=== PATIENT | male | born 1950 | race Caucasian/White ===

== ENCOUNTER → 2017-05-27 | Outpatient (CLI) | payer MEDICARE, BC ==
--- NOTE | 2017-05-28 07:36 | PN ---
This patient is coming in for a yearly follow up regarding obstructive sleep apnea. He is a 67 -year-old male patient diagnosed having obstructive sleep apnea, currently on CPAP therapy at a pressure of 13 cm water. Very compliant. Gained only four pounds since his last evaluation. CPAP use for more than four hours is 100%. Average CPAP use is 8.4 hours. Leak factor is 7 L. Using Simplex full face mask. AHI during treatment is less than 5. Benefitting from treatment. No complaints. Blood pressure 131/78. Pulse 66, respiratory rate 16, temperature 97.8, saturation 96% on room air. Weight is 235. Height is 6 feet 1 inches. General appearance: Calm comfortable. Lungs diminished, otherwise clear. Heart sounds regular rate and rhythm. Normal S1, S2. No murmurs. Abdomen soft, nontender, no organomegaly. Extremities: no edema, no cyanosis, no clubbing. IMPRESSION: Obstructive sleep apnea, continues to be on successful treatment with CPAP at a pressure of 13. PLAN: 1. Refill the supplies including mask, tubings. 2. Treatment is successful, no need for adjustments. 3. See me back as needed. YAS
== END ==
LOC: SLEEP 14:57
PROVIDERS: ATTEND Internal Medicine Critical Care Medicine
DX: G47.33 Obstructive sleep apnea (adult) (pediatric) (principal)

== ENCOUNTER → 2017-11-20 | Outpatient (CLI) | payer MEDICARE, BC ==
--- NOTE | 2017-11-20 12:31 | FL ---
Modified barium swallow. HISTORY: Dysphagia. Modified barium swallow was performed with the department of speech pathology. The patient was prese nted with various consistencies of barium. There is no evidence for aspiration or penetration. Mild vallecular residuals noted. Fixation plate and screws cervical spine secondary to ACDF. Full report is to follow from the department of speech p athology. Impression: No evidence for aspiration or penetration.
== END | disposition home or self-care (01) ==
LOC: RADFLMAIN 10:57
PROVIDERS: ATTEND Family Medicine
DX: R13.10 Dysphagia, unspecified (principal)
CPT/HCPCS: 74230

== ENCOUNTER → 2018-01-14 | Outpatient (CLI) | payer MEDICARE, BC ==
[2018-01-14 11:26] LABS: Basophils % (A) 0 %; Eosinophils # (A) 0.1 k/uL (0-0.7); Eosinophils % (A) 2 %; HCT 46.4 % (39.0-53.0); HGB 15.7 gm/dL (13.0-17.5); Lymphocytes # (A) 1.2 k/uL (1.0-4.8); Lymphocytes % (A) 21 %; MCH 31.4 pg (25.0-35.0); MCHC 33.9 g/dL (31.0-37.0); MCV 92.7 fL (80.0-100.0); Mean Platelet Volume 6.7; Monocytes # (A) 0.3 k/uL (0-1.0); Monocytes % (A) 6 %; Neutrophils % (A) 70 %; Platelet Count 239 k/uL (150-450); RDW 12.5 % (11.5-15.5); WBC 5.7 k/uL (3.8-10.6)
[2018-01-14 11:42] LABS: Albumin 4.1 g/dL (3.5-5.0); Calcium 9.9 mg/dL (8.4-10.2); Total Bilirubin 0.4 mg/dL (0.2-1.3); Total Protein 6.7 g/dL (6.3-8.2)
[2018-01-14 12:12] LABS: Prostate Specific Antigen 1.15 ng/mL (0.00-4.00)
== END | disposition home or self-care (01) ==
LOC: LABWHC1 10:49
PROVIDERS: ATTEND Family Medicine
DX: Z00.00 Encounter for general adult medical examination without abnormal findings (principal); I10 Essential (primary) hypertension; E78.4 Other hyperlipidemia; K21.9 Gastro-esophageal reflux disease without esophagitis
CPT/HCPCS: 36415; 80053; 80061; 84153; 84443; 85025

== ENCOUNTER → 2018-06-10 | Outpatient (CLI) | payer MEDICARE, BC ==
--- NOTE | 2018-06-10 14:55 | PN ---
PROGRESS NOTE This is a 68-year-old male patient coming in for an annual check regarding her obstructive sleep apnea. The patient is on CPAP at a pressure of 15 cm of water. The patient is doing well. He is compliance. He is wearing his CPAP overnight. Based on the compliance data on the CPAP his CPAP use for more than 4 hours is 100%. His AHI was 6 while on treatment. He is not having any significant leaks around the mask. Total leak is around 2 L/minute. His averaging more than 6 hours of CPAP use per night. Never the less, he is interested in a different masks. He is currently using a medium-sized Simplus full face mask. Despite the fact that there was no significant leak, the patient prefers to explore other options. I tried AirFit after 20 full face mask medium size which he liked and he is willing to undergo the change in his mask interface. His Vineland score currently is 4. No other medical problems or comorbidities that developed over the past 1 year. His weight is down by around 6 pounds. Hemodynamically stable. Adequate blood pressure control. No other significant events. REVIEW OF SYSTEMS: 12-point review of system was done. Positive findings are mentioned in history of present illness. No headaches. No altered mentation. No heartburn. No chest pain. No shortness of breath. No nausea, vomiting. No other complaints otherwise. PHYSICAL EXAMINATION: BP is 129/80, pulse 52, respirations 16, temperature 97.5, saturation 95% on room air. Height is 6 feet, weight is 229, BMI 31. GENERAL APPEARANCE: Calm, comfortable. HEENT: Atraumatic, normocephalic. Neck is short, supple. Crowding of posterior pharynx. There is no goiter or neck masses. LUNGS: Clear to auscultation. HEART: Sounds are regular. Normal S1, S2. No S3, S4. No murmurs. ABDOMEN: Soft, nontender. No organomegaly. EXTREMITIES: No edema. No cyanosis or clubbing. IMPRESSION: Symptomatic sleep apnea currently on CPAP pressure of 13 cm of water. PLAN: 1. We will switch this patient to an AirFit F20 full face mask. 2. Will increase the CPAP pressure of 14 cm of water. 3. Encourage further weight loss. 4. Optimize sleep hygiene measures. 5. Treatment is successful. The patient will see me back in a year's time or earlier if needed. MMODL / IJN: [id number] /
== END | disposition home or self-care (01) ==
LOC: SLEEP 13:20
PROVIDERS: ATTEND Internal Medicine Critical Care Medicine
DX: G47.33 Obstructive sleep apnea (adult) (pediatric) (principal); Z99.89 Dependence on other enabling machines and devices

== ENCOUNTER → 2019-04-20 | Outpatient (CLI) | payer MEDICARE | END | disposition home or self-care (01) | LOC: LABWHC1 10:38 | PROVIDERS: ATTEND Urology | DX: C61 Malignant neoplasm of prostate (principal) | CPT/HCPCS: 36415; 84153 ==

== ENCOUNTER → 2019-06-29 | Outpatient (CLI) | payer MEDICARE ==
--- NOTE | 2019-06-29 15:44 | P.PN ---
Subjective Progress Note Date: 06/29/19 Principal diagnosis: Obstructive sleep apnea Pleasant 69-year-old male patient who is coming in for an annual checkup regarding his RAMESH. This patient has been a long-time CPAP user. He has used his CPAP for many years. His last evaluation in my office was on 06/10/2018. At that time his CPAP pressure was increased up to 14 cm of water. On today's evaluation, the patient remains extremely compliant to CPAP use. He is still using his machine and based on the compliance data, the patient was noted to use his CPAP machine more than 4 hours 26 out of the past 30 days. He has been averaging around 9.1 hours of CPAP use per night. His EKG is around 4 L of per minute as the patient is using an airfit F20 fullface mask. His AHI is down to 4.3. Having said this, his treatment is successful. He reports that he has been threatening the straps on his headgear and is looking for alternative masks to make this problem looking easier. No chest pain. No palpitation. No shortness of breath. No headaches. No sleepwalking. No sleep talking. No parasomnia. No restlessness in the lower extremities. No new onset medical problems and comorbidities such as congestion heart failure, atrial fibrillation, stroke or heart attack. Review of systems a 12 point review of system was done and the positive findings are almost above history of present illness. No drowsiness pain no motor vehicle accident. No head trauma. No concussion. No meningitis. No heartburn. No nausea or vomiting. No chest pain or palpitations. No syncope. And rest of the review of systems essentially negative. His weight has been stable. Objective - Vital Signs Vital signs: His blood pressure is 138/71 with a pulse of 60 respirations 16 and a temperature of 98 0. His weight is 231 with a BMI of 3 on 11 4 with a height of 6 feet and 1 inch. His oxygen saturations 96%. The patient appeared well nourished and normally developed. Vital signs as documented. Head exam is unremarkable. No scleral icterus or corneal arcus noted. Neck is without jugular venous distension, thyromegaly, or carotid bruits. Carotid upstrokes are brisk bilaterally. Lungs are clear to auscultation and percussion. Cardiac exam reveals the PMI to be normally sized and situated. Rhythm is regular. First and second heart sounds normal. No murmurs, rubs or gallops. Abdominal exam reveals normal bowel sounds, no masses, no organomegaly and no aortic enlargement. Extremities are nonedematous and both femoral and pedal pulses are normal.Examination of the skin revealed no evidence of significant rashes, suspicious appearing nevi or other concerning lesions. Neurologically the patient is awake and alert and there is no focal neurological deficits. Assessment and Plan Plan: 1 obstructive sleep apnea currently on CPAP pressure of 14 cm of water with excellent clinical response and compliancy. 2 hypertension, well controlled 3 chronic depression currently on a combination of Wellbutrin and Zoloft. 4 history of acid reflux Plan Treatment remains quite successful with this patient. I'm going to lower the CPAP pressure down to 13 cm of water and appropriate adjustments on his CPAP unit was done. We did also an extensive search for an alternative mask. I was able to fit this patient to Airfit F30 medium size full facemask. The patient preferred this current fit knowing that this is an under the nose fullface mask and there was no significant leak around the mask. The patient was encouraged to lose weight. His treatment is successful. I'm hoping that the changes in the mask interface in lowering the pressure with further enhances compliance and clinical response. We'll continue to follow the patient will see her back in a years time, earlier if needed.
== END | disposition home or self-care (01) ==
LOC: SLEEP 14:28
PROVIDERS: ATTEND Internal Medicine Critical Care Medicine
DX: G47.33 Obstructive sleep apnea (adult) (pediatric) (principal); I10 Essential (primary) hypertension; F32.9 Major depressive disorder, single episode, unspecified; Z87.19 Personal history of other diseases of the digestive system; Z99.89 Dependence on other enabling machines and devices; Z79.899 Other long term (current) drug therapy

== ENCOUNTER → 2019-11-08 | Outpatient (CLI) | payer MEDICARE | END | disposition home or self-care (01) | LOC: LABWHC1 11:41 | PROVIDERS: ATTEND Urology | DX: C61 Malignant neoplasm of prostate (principal) | CPT/HCPCS: 36415; 84153 ==

== ENCOUNTER → 2020-05-22 | Outpatient (CLI) | payer MEDICARE | END | disposition home or self-care (01) | LOC: LABPAT 12:25 | PROVIDERS: ATTEND Orthopaedic Surgery | DX: Z01.812 Encounter for preprocedural laboratory examination (principal) | CPT/HCPCS: 87070 ==

== ENCOUNTER → 2020-05-22 | Outpatient (CLI) | payer MEDICARE | END | disposition home or self-care (01) | LOC: LABWHC1 12:27 | PROVIDERS: ATTEND Urology | DX: C61 Malignant neoplasm of prostate (principal) | CPT/HCPCS: 36415; 84153 ==

== ENCOUNTER 2020-06-19 12:55 | Day surgery (SDC) | payer MEDICARE ==
[2020-06-09 14:58] VITALS: BMI 29.5
--- NOTE | 2020-06-18 13:26 | HP ---
HISTORY AND PHYSICAL REASON FOR ADMISSION: Surgery 06/19/2020 HISTORY OF PRESENT ILLNESS: Mauricio Roth is a 70-year-old patient seen with progressive right knee symptomatic osteoarthritis. We discussed options. He elected to proceed right total knee arthroplasty. Consent regarding procedure was obtained. Clearance was provided by Dr. Obed Dahl. PAST MEDICAL HISTORY: Hypertension, gastroesophageal reflux disease, depression. PAST SURGICAL HISTORY: Cervical spine fusion, lumbar spine fusion, cholecystectomy. MEDICATIONS: Tenormin, lisinopril, sertraline, pantoprazole. ALLERGIES: None. SOCIAL HISTORY: He denies tobacco use. PHYSICAL EXAMINATION: Evaluation of the right knee range of motion is -2 to 115. Tenderness medial joint line. Crepitus medial patellofemoral compartments range of motion. Pain with patellofemoral compression. Ligaments stable. Hip rotation without pain. Distal neurovascular exam is intact. RADIOGRAPHS: Right knee radiographs revealed severe osteoarthritic changes. IMPRESSION: 1. Right knee osteoarthritis. 2. Hypertension. 3. Gastroesophageal reflux disease. PLAN: Right total knee arthroplasty. MMODL / IJN: [id number] /
[~2020-06-19 12:55] MED LIST: ACETAMINOPHEN TAB 500 MG TAB PO ONE; DEXAMETHASONE SOD PHOSPHATE 10 MG/ML 1 ML VIAL IV ONE; HYDROmorphone 0.5 MG/0.5 ML SYRINGE IVP PRN; LACTATED RINGERS 1,000 ML IV SCH; MELOXICAM 7.5 MG TAB PO ONE; MIDAZOLAM 2 MG/2 ML VIAL IV PRN; ONDANSETRON 4 MG/2 ML VIAL IVP ONE; ROPIVACAINE 246.25 MG, EPINEPHrine 0.5 MG, KETOROLAC 30 MG, cloNIDine HCL/PF 80 MCG, WA... MISCELLANE ONE; TRANEXAMIC ACID 1,000 MG in SODIUM CHLORIDE 0.9% 100 ML IVPB ONE
[2020-06-19] MEDS ORDERED: ACETAMINOPHEN TAB 500 MG TAB ONE (13:17)
[2020-06-19] MEDS ORDERED: ONDANSETRON 4 MG/2 ML VIAL ONE (13:17)
[2020-06-19] MEDS ORDERED: SCOPOLAMINE 1.5MG/72HR PATCH TRANSDERM ONE (13:41)
[2020-06-19] MEDS ORDERED: fentaNYL (PF) 50 MCG/ML 2 ML AMP IV ONE (13:44)
[2020-06-19] MEDS ORDERED: MIDAZOLAM 2 MG/2 ML VIAL IV ONE (13:44)
--- NOTE | 2020-06-19 14:21 | P.ANPRN ---
Procedure Note - Anesthesia - Nerve Block Performed Right Adductor Canal Infusion Time Out Performed: Yes ([id number]) Date of Procedure: 06/19/20 Procedure Start Time: 13:45 Procedure Stop Time: 13:52 Location of Patient: PreOp Indication: Acute Post-Operative Pain, Requested by Surgeon Specifically requested for management of pain by DrBasil: Leonid aDs Sedation Type: Sedate with meaningful contact maintained Preparation: Sterile Prep Position: Supine Catheter: Indwelling Needle Types: Pajunk Needle Gauge: 20 Ultrasound used to visualize needle placement: Yes Ultrasound used to observe medication spread: Yes Injectate: 0.5% Ropivacaine (see comment for volume) (20cc) Blood Aspirated: No Pain Paresthesia on Injection Noted: No Resistance on Injection: Normal Image Stored and Saved: Yes Events: Uneventful and Well Tolerated
[2020-06-19] MEDS ORDERED: SODIUM CHLORIDE 0.9% 100 ML BAG ONE (15:06)
[2020-06-19] MEDS ORDERED: MIDAZOLAM 2 MG/2 ML VIAL ONE (15:06)
[2020-06-19] MEDS ORDERED: fentaNYL (PF) 50 MCG/ML 2 ML AMP ONE (15:06)
[2020-06-19] MEDS ORDERED: PROPOFOL 10 MG/ML 20 ML VIAL IV ONE (15:06)
[2020-06-19] MEDS ORDERED: TRANEXAMIC ACID 1,000 MG/10 ML VIAL ONE (15:06)
[2020-06-19] MEDS ORDERED: ceFAZolin 1,000 MG in SODIUM CHLORIDE 0.9% 1,000 ML IRRIGATION ONE (15:51)
[2020-06-19] MEDS ORDERED: LACTATED RINGERS 1,000 ML IV ONE (16:12)
[2020-06-19] MEDS ORDERED: NALOXONE 0.4 MG/ML 1 ML VIAL IV PRN (17:14)
[2020-06-19] MEDS ORDERED: HYDROmorphone 0.5 MG/0.5 ML SYRINGE IVP PRN ×3 (17:14)
[2020-06-19] MEDS ORDERED: hydrOXYzine pamoate 25 MG CAP PO PRN (17:14)
[2020-06-19] MEDS ORDERED: HYDROcodone/APAP 5-325MG 1 EACH TAB PO PRN ×2 (17:14)
[2020-06-19] MEDS ORDERED: ONDANSETRON 4 MG/2 ML VIAL IVP PRN (17:14)
--- NOTE | 2020-06-19 17:14 | P.OP ---
Date of Procedure: 06/19/20 Preoperative Diagnosis: Right knee osteoarthritis Postoperative Diagnosis: Right knee osteoarthritis Procedure(s) Performed: Right total knee arthroplasty Implants: 1. Depuy attune size 7 right cruciate retaining cemented femur 2. Depuy attune size 7 fixed-bearing cemented tibial baseplate 3. Depuy attune size 7 fixed-bearing cruciate retaining 7 mm polyethylene tibial insert 4. Depuy attune 41 mm all polyethylene cemented patella Anesthesia: regional (Adductor canal catheter), local, spinal Surgeon: Leonid Das General Teller #1: Karan White Estimated Blood Loss (ml): 40 Pathology: other (Bone) Condition: stable Disposition: PACU Indications for Procedure: 70-year-old patient seen with symptomatic right knee osteoarthritis. After treatment options were discussed, he elected to proceed with total knee art hroplasty. Operative Findings: See description of procedure Description of Procedure: Patient was taken to the operative suite after having an adductor canal catheter placed by the department of anesthesia. Patient underwent a spinal anesthetic by the department of anesthesia. Patient was given preoperative IV intake antibiotics and TXA. A well-padded tourniquet was placed about the right lower extremity. The lower extremity was then prepped and draped in the normal sterile orthopedic fashion. The extremity was elevated, a tourniquet was insufflated to 300. A standard anterior incision was made sharply through skin. Dissection was taken down through the subcutaneous soft tissues down to the extensor mechanism. A medial arthrotomy was performed, patella was everted and knee was flexed. There was advanced osteoarthritis noted. I introduced my distal intramedullary femoral drill. I then introduced the distal femoral cutting jig. Darrius DEVI secured the cutting jig with 2 pins. I held retractors in position while Darrius DEVI performed the distal femoral resection through the guide area we now removed her distal femoral cutting guide. We now placed our 4-in-1 femoral cutting block and positioned and it was secured with 2 pins by Darrius DEVI while I held the block in position. The distal femoral finishing was now completed. A proximal tibial cutting guide was positioned. I held the guide in the appropriate position with both hands well Darrius DEVI inserted stabilizing pins into the guide. Proximal tibial cut was made. We now placed a trial femoral component into position, along with an appropriate size tibial tray and insert. We now took the knee through range of motion and had full extension good flexion and good overall soft tissue balance noted. The patella was everted and stabilized with 2 towel clips held by Darrius DEVI while I performed a flush with patellar quad tendon utilizing a fresh sawblade. We templated the patella, appropriate drill holes were made. An appropriate trial patella was positioned, knee was taken through full range of motion with the patella tracking very nicely. The trial patella was removed. Drill holes were made through the femoral component. All trial components were removed after marking off the appropriate rotation of the tibia. Retractors w ere now positioned along the proximal tibia. An appropriate keel punch was made with the appropriate size tibial guide by myself on Darrius DEVI assisted by holding retractors. At this point appropriate size implants were chosen and opened. The joint was irrigated copiously with pulse lavage mechanical irrigation. The posterior capsule was infiltrated with local analgesic. The wound was irrigated with pulse lavage mechanical irrigation. We mixed antibiotic methylmethacrylate. We placed the knee into flexion. We placed multiple retractors assisted by Darrius DEVI to expose the proximal tibia. Once the methyl methacrylate was ready, the tibial component was cemented into place removing any excess methylmethacrylate form by both myself and Darrius DEVI. The femoral component was cemented into place removing the removing any excess methylmethacrylate performed by both myself and Darrius DEVI. We then inserted the appropriate size polyethylene tibial insert. We made sure that it was locked into position. We took the knee into full extension, and then back in a flexion making sure we had removed any excess methylmethacrylate. The patellar component was then cemented down and secured with clamp. Excess methylmethacrylate removed. We kept the knee in full extension, patellar clamp in position until methylmethacrylate had hardened. Once it had hardened the patellar clamp was removed. The knee was taken through full range of motion. The patella tracked nicely. There was good soft tissue balancing. The tourniquet was now released. Additional hemostasis was achieved via electrocautery. A second gram of TXA was given. The wound again was irrigated with pulse lavage mechanical irrigation. The superficial soft tissues were infiltrated local analgesic. The extensor mechanism was repaired with Vicryl. We checked the repair with range of motion and it was stable. The subcutaneous soft tissues were repaired with Vicryl in layers. The skin was approximated with pernio/Dermabond. Sterile dressings were applied followed by loose web roll and Leobardo bandage. The patient was transferred to a bed, and taken to recovery in stable and satisfactory condition. Darrius DEVI assisted with this complex procedure.
[2020-06-19] MEDS ORDERED: ROPIVACAINE 0.2%-NS ON-Q PUMP 1,090 MG, EMPTY PAIN BALL 1 EACH MISCELLANE PRN (17:33)
--- NOTE | 2020-06-19 18:39 | XR ---
EXAMINATION TYPE: XR knee limited RT DATE OF EXAM: 06/19/2020 COMPARISON: NONE HISTORY: Knee surgery TECHNIQUE: 2 views FINDINGS: There is right knee prosthesis. Components are in anatomic position. IMPRESSION: No complicating process seen.
[2020-06-19] MEDS ORDERED: SENNOSIDES-DOCUSATE SODIUM 1 EACH TAB PO SCH (21:00)
[2020-06-19] MEDS: LACTATED RINGERS 1,000 ML IV SCH (23:15)
[2020-06-20] MEDS: LACTATED RINGERS 1,000 ML IV SCH ×2 (04:48→12:18)
[2020-06-20 07:36] VITALS: RESP 17
[2020-06-20 08:15] LABS: Basophils % (A) 0 %; Eosinophils # (A) 0.1 k/uL (0-0.7); Eosinophils % (A) 0 %; HCT 43.2 % (39.0-53.0); HGB 13.6 gm/dL (13.0-17.5); Lymphocytes # (A) 1.1 k/uL (1.0-4.8); Lymphocytes % (A) 8 %; MCH 30.5 pg (25.0-35.0); MCHC 31.6 g/dL (31.0-37.0); MCV 96.5 fL (80.0-100.0); Mean Platelet Volume 7.1; Monocytes # (A) 0.8 k/uL (0-1.0); Monocytes % (A) 6 %; Neutrophils # (A) 12.6 k/uL (1.3-7.7); Neutrophils % (A) 85 %; Platelet Count 248 k/uL (150-450); RBC 4.48 m/uL (4.30-5.90); RDW 12.7 % (11.5-15.5); WBC 14.8 k/uL (3.8-10.6)
[2020-06-20] MEDS ORDERED: ENOXAPARIN 30 MG/0.3 ML SYRINGE SQ SCH (09:00)
[2020-06-20] MEDS ORDERED: MELOXICAM 7.5 MG TAB PO SCH (09:00)
[2020-06-20] MEDS ORDERED: SERTRALINE 100 MG TAB PO SCH (11:15)
[2020-06-20] MEDS ORDERED: buPROPion XL 150 MG TAB.ER.24H PO SCH (11:15)
[2020-06-20] MEDS ORDERED: PANTOPRAZOLE 40 MG TABLET PO SCH (11:15)
[2020-06-20] MEDS ORDERED: lisinopriL 20 MG TAB PO SCH (11:15)
--- NOTE | 2020-06-20 13:05 | P.PN ---
Subjective Progress Note Date: 06/20/20 Principal diagnosis: Status post right total knee arthroplasty patient evaluated at bedside, he's resting comfortably. He is done very well with therapy. His pain is well-controlled. He denies any chest pain or shortness of breath. Objective - Vital Signs Vital signs: Vital Signs Temp 97.6 F 06/20/20 07:00 Pulse 54 L 06/20/20 07:00 Resp 17 06/20/20 07:00 BP 144/72 06/20/20 07:00 Pulse Ox 96 06/20/20 07:00 Intake & Output 06/19/20 06/20/20 06/20/20 18:59 06:59 18:59 Intake Total 1051 400 Output Total 40 Balance 1011 400 Weight 101 kg Intake: IV 1051 Oral 400 Output: Estimated Blood Loss 40 Other: Voiding Method Toilet # Voids 2 - Exam Right lower extremity: Incision is clean, dry, and intact. The foam dressing is in good condition. There is minimal soft tissue swelling and ecchymosis surrounding the medial and lateral aspects of the incision. Calf is soft, no tenderness with palpation. Plantar flexion, dorsiflexion, EHL, FHL are intact. Sensory exam to light touch throughout the extremity is intact, dorsal pedis pulses 2+. - Labs CBC & Chem 7: 06/20/20 07:57 06/19/20 13:30 Labs: Abnormal Lab Results - Last 24 Hours (Table) 06/20/20 Range/Units 07:57 WBC 14.8 H (3.8-10.6) k/uL Neutrophils # 12.6 H (1.3-7.7) k/uL Assessment and Plan Assessment: Status post right total knee arthroplasty Plan: Pain control, plan for discharge home on Baldwin 5 mg/325 mg GI and DVT prophylaxis, aspirin 81 mg twice a day Home care instructions were discussed Encourage incentive spirometer Icing and elevating techniques discussed Medical recommendations Plan for dc home today Time with Patient: Less than 30
--- NOTE | 2020-06-20 13:08 | P.DS ---
Providers Date of admission: 06/19/2020 Expected date of discharge: 06/20/20 Attending physician: Leonid Das Primary care physician: [facility] Course: Date of admission: 06/19/2020 Date of discharge: 06/20/2020 Admission diagnosis: Status post right total knee arthroplasty Discharge diagnosis: Same Attending physician: Dr. Dsa Surgical procedures: Right total knee arthroplasty Brief history: Patient is a 70-year-old male with a history of progressive primary right knee osteoarthritis . At this point patient has failed conservative treatment measures and has opted to proceed with a elective right total knee arthroplasty. Hospital course: Details of patient's surgery can be found in operative report. Patient tolerated the procedure well and was subsequently transported to orthopedic floor. Patient's orthopeidc and medical care was provided daily. Patient had daily laboratory tests performed for evaluation of overall blood counts. Patient had daily physical therapy to include strengthening range of motion as well as education with walker ambulation. Patient was treated with Lovenox for their postoperative DVT prophylaxis during their inpatient stay. Patient was noted to have a relatively uneventful postoperative course. Patient reported satisfactory pain control with oral pain medications by postoperative day 0. Patient showed satisfactory progress with physical therapy. Patient m shaka steadily through the program and had no difficulty meeting the goals by postoperative day 1. Given patient's otherwise satisfactory course and having met physical therapy goals, plan is to discharge patient home on postoperative day 1. Discharge condition/disposition: Patient will be discharged home in stable condition. Discharge medications: Instructions are given on resumption of patient's normal daily medications per primary care recommendation, in addition patient will be prescribed Salineno 5 mg/325 mg, Colace 100 mg. Discharge instructions: 1. Wound care and infection precautions, keep incision dry and covered while showering, no lotions, creams, moisturizers. No soaking, tubs, pools, hottubs. Do not scrub over the incision. 2. Weight-bear as tolerated with walker / cane until follow-up. 3. Ice and elevate when necessary. Do not exceed 20 minutes per hour with ice pack. 4. Utilize compression sleeve until seen at first follow up appointment. 5. Visiting nursing care. 6. Home physical therapy. 7. Pain meds and anticoagulants per prescription. 8. Pain medication has potential to cause constipation. Increase oral fluid and fiber intake. Contact primary care provider if you have not had a bowel movement within 48 hours after discharge 9. No anti-inflammatory medication until discussed at first post operative visit, this including Motrin, Aleve, Mobic, Diclofenac 10. Follow up in office at 2 weeks postop with Darrius White PA-C 11. Follow up with your primary care doctor 7-10 days after discharge. 12. Contact [facility] with any questions, . Procedures: Right total knee arthroplasty Patient Condition at Discharge: Good Plan - Discharge Summary Discharge Rx Participant: No New Discharge Prescriptions: New Aspirin [Adult Low Dose Aspirin EC] 81 mg PO BID #60 tablet. Docusate [Colace] 100 mg PO DAILY #30 capsule Hydrocodone/Acetaminophen [Salineno 5-325] 1 - 2 each PO Q6HR PRN #56 tab PRN Reason: Pain Discontinued Aspirin 81 mg PO DAILY No Action atenoloL [Tenormin] 25 mg PO HS buPROPion XL [Wellbutrin Xl] 150 mg PO QAM Sertraline [Zoloft] 150 mg PO QAM lisinopriL 40 mg PO QAM Pantoprazole [Protonix] 40 mg PO QAM Dicyclomine HCl 20 mg PO TID Discharge Medication List Sertraline [Zoloft] 150 mg PO QAM 11/22/14 [History] atenoloL [Tenormin] 25 mg PO HS 11/22/14 [History] buPROPion XL [Wellbutrin Xl] 150 mg PO QAM 11/22/14 [History] lisinopriL 40 mg PO QAM 11/22/14 [History] Dicyclomine HCl 20 mg PO TID 06/09/20 [History] Pantoprazole [Protonix] 40 mg PO QAM 06/09/20 [History] Aspirin [Adult Low Dose Aspirin EC] 81 mg PO BID #60 tablet. 06/20/20 [Rx] Docusate [Colace] 100 mg PO DAILY #30 capsule 06/20/20 [Rx] Hydrocodone/Acetaminophen [Salineno 5-325] 1 - 2 each PO Q6HR PRN #56 tab 06/20/20 [Rx] Follow up Appointment(s)/Referral(s): Obed Dahl Jr, [Primary Care Provider] - 06/23/20 10:30 am [facility],Equipment [NON-STAFF] - As Needed (continuous passive motion knee machine) [facility], [NON-STAFF] - As Needed Karan White, MARINE [PHYSICIAN METAL MACHINE SETTER] - 07/05/20 4:00 pm Patient Instructions/Handouts: *Surgery [facility] - Scopalamine Patch Instructions Activity/Diet/Wound Care/Special Instructions: Orthopedic Discharge Instructions: 1. Wound care and infection precautions, keep incision dry and covered while showering, no lotions, creams, moisturizers. No soaking, pools, hot tubs. Do not scrub over incision. 2. Weight-bear as tolerated with walker / cane until follow-up. 3. Ice and elevate when necessary. Do not exceed 20 minutes per hour with ice pack. 4. Utilize compression sleeve until seen at first follow up appointment. 5. Pain meds and anticoagulants per prescription. 6. Pain medication has potential to cause constipation. Increase oral fluid and fiber intake. Contact primary care provider if you have not had a bowel movement within 48 hours after discharge. 7. No anti-inflammatory medication until discussed at first post operative visit, this including Motrin, Aleve, Mobic, Diclofenac. 8. Follow up in office at 2 weeks postop with Darrius White PA-C 9. Follow up with your primary care doctor 7-10 days after discharge. 10. Contact [facility] with any questions, . Please remove so her dressing on 06/28/2020 Discharge Disposition: HOME WITH HOME HEALTH SERVICES
--- NOTE | 2020-06-20 13:09 | P.CONS ---
History of Present Illness - Reason for Consult Consult date: 06/20/20 Medical management hypertension, gastroesophageal reflux disease Requesting physician: Leonid Das - Chief Complaint Right knee OA - History of Present Illness This is a 62-year-old gentleman with history of prostate cancer, gastroesophageal reflux disease, hearing disorder, hypertension, sleep apnea wears CPAP, depression, admitted with right knee osteoarthritis, failed conservative treatment, status post right total knee arthroplasty. Tolerated procedure well. Pain controlled. Passing flatus. Denies nausea vomiting or diarrhea. Denies lightheadedness, dizziness or focal deficits.VSS. Denies chest pain, palpitations. Wearing CPAP when sleeping. Afebrile, WBC 14.8. Review of Systems Constitutional: Denied any fatigue denied any fever. Cardio vascular: denied any chest pain, palpitations Gastrointestinal denied any nausea vomiting Pulmonary: Denied any shortness of breath cough Neurologic denied any new focal deficits ROS Statement: Those systems with pertinent positive or pertinent negative responses have been documented in the HPI. ROS Other: All systems not noted in ROS Statement are negative. Past Medical History Past Medical History: Cancer, GERD/Reflux, Hearing Disorder / Deafness, Hypertension, Prostate Disorder, Sleep Apnea/CPAP/BIPAP Additional Past Medical History / Comment(s): SLEEP APNEA-C PAP,[place] jeremie ears,pro state [place]-Dx 2018-monitoring History of Any Multi-Drug Resistant Organisms: None Reported Past Surgical History: Cholecystectomy, Orthopedic Surgery Additional Past Surgical History / Comment(s): NECK AND BACK SURGERY,jeremie knee arthroscopies,trigger finger surgery,TURP Past Anesthesia/Blood Transfusion Reactions: Previous Problems w/ Anesthesia Additional Past Anesthesia/Blood Transfusion Reaction / Comm: no hx blood transfusion,prior to TURP-had difficulty urinating post anesthesia Past Psychological History: Depression Smoking Status: Never smoker Past Alcohol Use History: Occasional Past Drug Use History: None Reported - Past Family History Father Family Medical History: Cancer Additional Family Medical History / Comment(s): prostate Medications and Allergies Home Medications Medication Instructions Recorded Confirmed Type Sertraline [Zoloft] 150 mg PO QAM 11/22/14 06/09/20 History atenoloL [Tenormin] 25 mg PO HS 11/22/14 06/09/20 History buPROPion XL [Wellbutrin Xl] 150 mg PO QAM 11/22/14 06/09/20 History lisinopriL 40 mg PO QAM 11/22/14 06/09/20 History Dicyclomine HCl 20 mg PO TID 06/09/20 06/09/20 History Pantoprazole [Protonix] 40 mg PO QAM 06/09/20 06/09/20 History Aspirin [Adult Low Dose Aspirin EC] 81 mg PO BID #60 tablet. 06/20/20 Rx Docusate [Colace] 100 mg PO DAILY #30 capsule 06/20/20 Rx Hydrocodone/Acetaminophen [[place] 1 - 2 each PO Q6HR PRN #56 tab 06/20/20 Rx 5-325] Allergies Allergy/AdvReac Type Severity Reaction Status Date / Time No Known Allergies Allergy Verified 06/09/20 14:46 Physical Exam Vitals: Vital Signs Temp Pulse Resp BP BP Pulse Ox 06/20/20 07:00 97.6 F 54 L 17 144/72 96 06/20/20 02:00 97.7 F 63 20 146/64 95 06/19/20 19:30 97.7 F 61 20 136/80 95 06/19/20 18:15 62 16 139/75 98 06/19/20 18:00 61 16 139/73 98 06/19/20 17:45 57 L 16 142/70 98 06/19/20 17:29 97.4 F L 59 L 16 141/76 98 06/19/20 13:59 56 L 16 155/75 98 06/19/20 13:14 97.6 F 56 L 18 175/85 98 Intake and Output 06/19/20 06/20/20 06/20/20 22:59 06:59 14:59 Intake Total 1251 200 Output Total 40 Balance 1211 200 Intake: IV 1051 Oral 200 200 Output: Estimated Blood Loss 40 Other: Voiding Method Toilet # Voids 1 2 Weight 101 kg PHYSICAL EXAM: VITAL SIGNS: As above GENERAL: Sitting up in bed, no acute distress HEENT: Conjunctivae normal. eyes normal. Oral mucosa moist. NECK: No JVD. No thyroid enlargement. No LNs CARDIOVASCULAR: S1, S2 regular. No murmur RESPIRATION: Breath sounds diminished in the bases. No rhonchi or crackles. No bronchial breathing. ABDOMEN: Soft, nontender . No guarding. no masses palpable. No ascites, No hepatosplenomegaly.Bowel sounds heard. LEGS: Right knee dressings clean dry and intact, mild edema, positive DP pulse PSYCHIATRY: Alert and oriented X3, mood and affect normal. NERVOUS SYSTEM: Cranial N 2-12 grossly normal. Moves all 4 limbs. Diffuse weakness, No focal deficits. Strength and sensation grossly intact.. Skin: Warm and dry, no rash Lymphatic system. No LN neck axilla. Results CBC & Chem 7: 06/20/20 07:57 06/19/20 13:30 Labs: Abnormal Lab Results - Last 24 Hours (Table) 06/20/20 Range/Units 07:57 WBC 14.8 H (3.8-10.6) k/uL Neutrophils # 12.6 H (1.3-7.7) k/uL Assessment and Plan Assessment: Right knee OA, status post Leukocytosis, suspect reactive Atelectasis Hypertension Gastroesophageal reflux disease Sleep apnea, wears CPAP Depression History of prostate cancer Bilateral hearing disorder Plan: Continue on current medication regime ,monitoring and symptomatic treatment. Pain management as per primary. GI prophylaxis with Protonix, DVT prophylaxis with Lovenox. Home meds have been reviewed and resumed accordingly. Aggressive pulmonary toileting with incentive spirometer reinforced. PT/OT. Discharge plan he will progress as per orthopedic surgery. Follow-up with PCP in [address] Das for the consult. The impression and plan of care has been dictated as directed. : I performed a history and examination of this patient, discussed the same with the dictator. I agree with the dictator's note ,documented as a scribe. Any additional findings or plans will be noted.
--- NOTE | 2020-06-20 13:22 | P.PN ---
Progress Note - Text 06/20/20 630am 70-year-old male status post total knee replacement. Patient seen and evaluated this morning patient has an On-Q pump for postop pain control with solution running at 8 mL an hour, patient has a VAS of 0. Plan to continue On-Q pump infusion
[2020-06-20 14:13] VITALS: BP 147/84; PULSE 64; TEMP 98
[2020-06-20] MEDS ORDERED: DICYCLOMINE 20 MG TAB PO SCH (16:00)
[2020-06-20] MEDS ORDERED: atenoloL 25 MG TAB PO SCH (21:00)
== END 2020-06-20 14:44 | disposition home health service (06) ==
LOC: OR 12:55 → 4SSUR 17:15 → OR 06-20 14:44
PROVIDERS: ATTEND Orthopaedic Surgery
DX: M17.11 Unilateral primary osteoarthritis, right knee (principal); D72.829 Elevated white blood cell count, unspecified; I10 Essential (primary) hypertension; J98.11 Atelectasis; G47.33 Obstructive sleep apnea (adult) (pediatric); K21.9 Gastro-esophageal reflux disease without esophagitis; H91.93 Unspecified hearing loss, bilateral; F32.9 Major depressive disorder, single episode, unspecified; Z90.49 Acquired absence of other specified parts of digestive tract; Z79.82 Long term (current) use of aspirin; Z79.899 Other long term (current) drug therapy; Z99.89 Dependence on other enabling machines and devices; Z85.46 Personal history of malignant neoplasm of prostate; Z98.1 Arthrodesis status; Z80.42 Family history of malignant neoplasm of prostate
CPT/HCPCS: 97110; 97161; 64448; 76942; 84132; 85025; 73560; 27447; C1776; C1713; J2250; J0171; J1100; J0690 ×3; J2405; J3010; J1885; J1650; J2795 ×2; J0735; 88305; 88311

== ENCOUNTER → 2020-08-02 | Outpatient (CLI) | payer MEDICARE ==
--- NOTE | 2020-08-02 12:46 | MR ---
EXAMINATION TYPE: MR shoulder LT wo con DATE OF EXAM: 08/02/2020 COMPARISON: X-ray 05/16/2020 HISTORY: Pain TECHNIQUE: Multiplanar, multisequence imaging of the left shoulder is performed without contrast. FINDINGS: There is hypertrophic arthropathy of the AC joint. Exam is limited due to motion artifact b ut there does appear to be a degree of impingement. There is fluid in the subacromial subdeltoid burs a. Septation suggested may be a small ganglion cyst measuring 1.9 cm. Inferior glenohumeral ligament intact. Tiny glenohumeral joint effusion. Assessment of the labrum is limited due to motion artifact. Grossly appear to be intact by nonarthrogram technique. Subscapularis appears to be intact. Infraspinatus tendon is intact with no definite through thickness tear There is thickening of the distal margin and insertion and fraying of the supraspinatus tendon. There is a partial through thickness tear distally near the insertion measuring approximately 5 mm. No ret raction. IMPRESSION: 1. Impingement secondary to AC joint arthropathy resulting in distal supraspinatus severe tendinosis and fraying. Partial through thickness tear near the insertion measuring 5 mm in the anterior fibers without evidence of retraction. 2. Fluid in the subacromial bursa. There is a septation within the fluid raising the possibility of a small ganglion cyst
== END | disposition home or self-care (01) ==
LOC: RADMRIMAIN 11:43
PROVIDERS: ATTEND Orthopaedic Surgery
DX: M12.812 Other specific arthropathies, not elsewhere classified, left shoulder (principal)

== ENCOUNTER → 2021-01-22 | Outpatient (CLI) | payer MEDICARE | END | disposition home or self-care (01) | LOC: LABWHC1 11:24 | PROVIDERS: ATTEND Urology | DX: C61 Malignant neoplasm of prostate (principal) | CPT/HCPCS: 36415; 84153 ==

== ENCOUNTER → 2022-06-21 | Outpatient (CLI) | payer MEDICARE ==
--- NOTE | 2022-06-21 12:08 | NM ---
EXAMINATION TYPE: NM stress cardiolite complete DATE OF EXAM: 06/21/2022 COMPARISON: NONE HISTORY: History of hypertension and prior heart catheterization presents with abnormal EKG. Presurgi rowan study. TECHNIQUE: After the intravenous administration of 9.8 mCi Tc 99m Sestamibi - Cardiolite resting SPE CT images acquired 45 minutes post injection. The patient received 0.4mg Lexiscan, 25.3 mCi Tc 99m Sestamibi - Stress images obtained [address] injection FINDINGS: Review of stress and rest SPECT images demonstrates no distinct perfusion abnormality. Gated analysi s shows normal wall motion with an estimated left ventricular ejection fraction of 61 %. IMPRESSION: No scintigraphic evidence for reversible ischemia.
--- NOTE | 2022-06-21 17:43 | CA ---
Transthoracic Echo Report Name: Mauricio Roth Age: 72 Gender: M : 1950 Exam Date: 06/21/2022 08:45 Exam Location: [facility] Ht (in): 71 Wt (lb): 224 Ordering Physician: Obed Dahl DO Attending/Referring Phys: Allergy Nurse Teresa Varner RDCS Procedure CPT: Indications: R94.31 abn ekg, Z01.818 Cardiac Hx: Technical Quality: Good Contrast 1: Total Dose (mL): Contrast 2: Total Dose (mL): MEASUREMENTS (Male / Female) Normal Values 2D ECHO RV Internal Dim ED PLAX 4.2 cm LA Volume 83.2 cm??? 18 - 58 / 22 - 52 cm??? M-MODE Aortic Root Diameter MM 3.5 cm LA Systolic Diameter MM 4.1 cm LA Ao Ratio MM 1.2 MV E Point Septal Separation 0.8 cm AV Cusp Separation MM 2.2 cm DOPPLER AV Peak Velocity 121.1 cm/s AV Peak Gradient 5.9 mmHg AI Peak Velocity 315.5 cm/s AI Peak Gradient 39.8 mmHg AI Pressure Half Time 798.8 ms MV Area PHT 3.5 cm??? MR Peak Velocity 393.6 cm/s MR Peak Gradient 62.0 mmHg Mitral E Point Velocity 75.3 cm/s Mitral A Point Velocity 71.1 cm/s Mitral E to A Ratio 1.1 MV Deceleration Time 214.0 ms MV E' Velocity 8.8 cm/s Mitral E to MV E' Ratio 8.6 TR Peak Velocity 150.7 cm/s TR Peak Gradient 9.1 mmHg Right Ventricular Systolic Press 14.1 mmHg FINDINGS Left Ventricle Left ventricular ejection fraction is estimated at 55-60 %. Grade 1 diastolic dysfunction. Left ventricular cavity size normal. Left ventricular wall thickness normal. Right Ventricle Moderate right ventricular dilatation. Right ventricular systolic pressure within normal limits. Right Atrium Normal right atrial size. Left Atrium Severely increased left atrial volume. Mildly increased left atrial area. Mitral Valve Structurally normal mitral valve without significant stenosis or prolapse. There is mild mitral regurgitation. Aortic Valve Structurally normal aortic valve without significant sclerosis or stenosis. There is trace aortic regurgitation. Tricuspid Valve Structurally normal tricuspid valve without significant stenosis. Pulmonary artery systolic pressure is normal. Mild tricuspid regurgitation. Pulmonic Valve Structurally normal pulmonic valve without significant stenosis. There is no pulmonic regurgitation. Pericardium Normal pericardium without effusion. Aorta Normal aortic root dimension. CONCLUSIONS Normal left ventricular dimension and systolic function Previewed by: Dr. Eric Ng MD (Electronically Signed) Final Date: 21 June 2022 17:42
--- NOTE | 2022-06-21 18:11 | CA ---
Lexiscan Nuclear Stress Test Report Name: Mauricio Roth Exam Date: 06/21/2022 10:42 Exam Location: [facility] Ht (in): 73 Wt (lb): 224 BSA: 2.26 Ordering Phys: Obed Dahl DO Referring Phys: OBED DAHL,, Technologist: Aakash Longo Age: 72 Gender: M : 1950 Procedure CPT: Indications: R94.31 abn ekg, Z01.818 ICD-10 Codes: Patient History: Abnormal EKG and pre surgical Medications: Meds past 24 hrs: Pretest Chest Pain: STRESS TEST Lexiscan Protocol Exercise Duration (min:sec): 02:[address] Depressions (mm): Angina Score: Vann Score: Resting HR (bpm): 70 Peak HR (bpm): 81 Resting BP (mmHg): 151 / 80 Peak BP (mmHg): 147 / 70 MPHR: 150 Target HR: 128 % MPHR: 54 METS: 1.0 Total Dose: Peak Dose: Atropine: Double Product: 93262 BP Response: Stress Termination: Infusion complete Stress Symptoms: No chest pain or symptoms Stress Summary: ECG ANALYSIS Resting ECG: Stress ECG: CONCLUSIONS Non-diagnostic electrocardiogram stress testing Please follow-up on the Cardiolite portion Dr. Eric Ng MD (Electronically Signed) Final Date: 21 June 2022 18:10
== END | disposition home or self-care (01) ==
LOC: RADNMMAIN 07:41
PROVIDERS: ATTEND Family Medicine
DX: Z01.818 Encounter for other preprocedural examination (principal); I10 Essential (primary) hypertension; R94.31 Abnormal electrocardiogram [ECG] [EKG]
CPT/HCPCS: 93017; 93306; 78452; A9500

== ENCOUNTER → 2022-09-19 | Outpatient (CLI) | payer MEDICARE | END | disposition home or self-care (01) | LOC: LABWHC1 13:46 | PROVIDERS: ATTEND Urology | DX: R97.20 Elevated prostate specific antigen [PSA] (principal) | CPT/HCPCS: 36415; 84153 ==

== ENCOUNTER 2023-04-03 14:16 | Day surgery (SDC) | payer MEDICARE ==
[2023-04-01 13:50] VITALS: BMI 29.7
--- NOTE | 2023-04-03 07:58 | HP ---
HISTORY AND PHYSICAL DATE OF SURGERY: 04/03/2023. HISTORY OF PRESENT ILLNESS: Mauricio Roth is a 73-year-old gentleman with progressive left knee pain. We discussed options for treatment. He elected to proceed with left knee arthroscopy. Consent regarding the procedure was obtained. Medical clearance was provided by Dr. Dahl. PAST MEDICAL HISTORY: Hypertension, hyperlipidemia. PAST SURGICAL HISTORY: Cholecystectomy, cervical fusion, lumbar decompression, right knee arthroscopy, prostatectomy. DAILY MEDICATIONS: Pantoprazole, amlodipine, hydrochlorothiazide, Tylenol, atenolol, lisinopril. ALLERGIES: None. SOCIAL HISTORY: Denies tobacco use. PHYSICAL EVALUATION OF THE LEFT KNEE: His range of motion is 0 to 125 degrees. Mild effusion. Tenderness, medial joint line. Positive medial Neto's. Ligaments stable. Hip rotation without pain. Distal neurovascular exam intact. RADIOGRAPHS: Left knee radiographs revealed some moderate osteoarthritic changes. IMPRESSION: 1. Internal derangement of left knee with medial meniscal tear. 2. Hypertension. 3. Hyperlipidemia. PLAN: Left knee arthroscopy with partial medial meniscectomy and debridement. MMODL / IJN: [id number] /
[~2023-04-03 14:16] MED LIST changes: -ACETAMINOPHEN TAB 500 MG TAB PO ONE; -DEXAMETHASONE SOD PHOSPHATE 10 MG/ML 1 ML VIAL IV ONE; +DEXAMETHASONE SOD PHOSPHATE 4 MG/ML 1 ML VIAL IV ONE; -LACTATED RINGERS 1,000 ML IV SCH; -MELOXICAM 7.5 MG TAB PO ONE; -ROPIVACAINE 246.25 MG, EPINEPHrine 0.5 MG, KETOROLAC 30 MG, cloNIDine HCL/PF 80 MCG, WA... MISCELLANE ONE; -TRANEXAMIC ACID 1,000 MG in SODIUM CHLORIDE 0.9% 100 ML IVPB ONE
[2023-04-03] MEDS: LACTATED RINGERS 1,000 ML IV SCH ×2 (14:59→15:50)
[2023-04-03] MEDS ORDERED: fentaNYL (PF) 50 MCG/ML 2 ML AMP ONE (15:47)
[2023-04-03] MEDS ORDERED: MIDAZOLAM 2 MG/2 ML VIAL ONE (15:47)
[2023-04-03] MEDS ORDERED: PROPOFOL 10 MG/ML 20 ML VIAL IV ONE (15:47)
[2023-04-03] MEDS ORDERED: LIDOCAINE 2% INJ 20 MG/ML (2 ML VIAL) ONE (15:47)
[2023-04-03] MEDS ORDERED: BUPIVACAINE (PF) 0.25% 30 ML VIAL SQ ONE ×2 (15:51→16:26)
[2023-04-03 16:43] VITALS: TEMP 97.2
--- NOTE | 2023-04-03 16:49 | P.OP ---
Date of Procedure: 04/03/23 Preoperative Diagnosis: Internal derangement left knee Postoperative Diagnosis: 1. Tear medial and lateral meniscus left knee 2. 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 2intra-articular loose bodies left knee(1-1.8 cm x 1.5 cm 1- 8 mm x 4 mm) 4. Reactive synovitis medial, lateral and suprapatellar compartments left knee Procedure(s) Performed: 1. Arthroscopic partial medial and lateral meniscectomy left knee 2. Arthroscopic microfracture medial tibial plateau left knee 3. Arthroscopic removal 2 loose bodies left knee(1-1.8 cm x 1.5 cm, 1-8 mm x 4 mm) 4. Arthroscopic partial synovectomy medial, lateral and suprapatellar co mpartments left knee Anesthesia: KARLEE, local Surgeon: Leonid Das Estimated Blood Loss (ml): 7 Pathology: none sent Condition: stable Disposition: PACU Indications for Procedure: 73-year-old gentleman who was seen with progressive left knee pain. After having treatment options discussed, he elected to proceed with arthroscopy. Operative Findings: See description of procedure Description of Procedure: Patient was taken to the operative suite. Patient underwent a general anesthetic by the department of anesthesia. Patient was given preoperative antibiotics. The left lower extremity was placed in a well-padded arthroscopic leg gordon. The left leg was prepped and draped in the normal sterile orthopedic fashion. A lateral parapatellar and suprapatellar incision was made. Trochars were inserted. Arthroscopy was initiated. Suprapatellar pouch revealed diffuse thick reactive synovitis. The patellofemoral joint appeared to articulate congruently. There was grade 1/2 chondromalacia of the patellofemoral joint without significant osteochondral tears.. The scope was guided into the medial gutter. No loose bodies or plica were identified. The scope was then guided into the medial compartment. A medial parapatellar incision was made. Trocar inserted followed by probe. There was a complex tear involving the posterior horn of the medial meniscus. There were grade 2/3 chondromalacia changes along the medial femoral condyle without significant osteochondral tears. There was an area of grade 4 chondromalacia along the medial tibial plateau with an area of exposed bone that measured about 1.5 cm in diameter. There was thick reactive synovitis anteriorly. I performed a partial medial meniscectomy getting down to stable meniscal tissue. I performed a partial synovectomy decompressing the reactive synovitis. I introduced a microfracture awl and performed a microfracture to that area of exposed bone medial tibial plateau penetrating the bone with resultant bleeding at the microfracture site. Scope and probe were then guided into the intercondylar notch. There was a very large loose body in the intercondylar notch. I had to enlarge the medial portal site to accommodate removal of this very large loose body. I now introduced loose body forceps I was able to retrieve the large loose body. This loose body measured 1.8 cm x 1.5 cm. Once it was completed and noted another small loose body in the notch. I introduced our loose body forceps and retrieve that knee removed without difficulty. That loose body measured 8 mm x 4 mm. The ACL was now identified and was found to be stable. The PCL appears stable. The scope and probe were then guided into lateral compartment. There was a radial tear mid body lateral meniscus. There was thick reactive synovitis anteriorly. There were grade 1 chondromalacia changes along the lateral femoral condyle with no tears. There was thick reactive synovitis anteriorly. I performed a partial lateral meniscectomy getting down to stable meniscal tissue. I performed a partial synovectomy decompressing the reactive synovitis. The residual meniscus was stable. There was good decompression of the synovitis. The scope was in guided back into the suprapatellar compartment. I introduced the motorized shaver into the suprapatellar compartment. I debrided some piecemeal fragments of meniscus I encountered. I performed a partial synovectomy. The shaver was now removed. There appeared be good decompression of the synovitis. I now took one more look around the entire knee, no residual debris. Instruments were now removed from the joint. The joint was infiltrated with .25% Marcaine. Steri-Strips were applied to the portal sites. Sterile dressings were applied. The patient was placed into a PHILLIP hose. No tourniquet was utilized. The patient was awakened, transferred to a bed and taken to recovery stable satisfactory condition.
[2023-04-03] MEDS ORDERED: traMADol 50 MG TAB ONE (17:54)
[2023-04-03] MEDS ORDERED: traMADol 50 MG TAB PO ONE (17:55)
[2023-04-03 18:07] VITALS: BP 122/72; PULSE 57; RESP 18
== END 2023-04-03 18:45 | disposition home or self-care (01) ==
LOC: OR 14:16
PROVIDERS: ATTEND Orthopaedic Surgery
DX: S83.232A Complex tear of medial meniscus, current injury, left knee, initial encounter (principal); S83.282A Other tear of lateral meniscus, current injury, left knee, initial encounter; M65.862 Other synovitis and tenosynovitis, left lower leg; M94.262 Chondromalacia, left knee; M23.42 Loose body in knee, left knee; M17.12 Unilateral primary osteoarthritis, left knee; I10 Essential (primary) hypertension; E78.5 Hyperlipidemia, unspecified; G47.33 Obstructive sleep apnea (adult) (pediatric); K21.9 Gastro-esophageal reflux disease without esophagitis; Z98.890 Other specified postprocedural states; Z79.1 Long term (current) use of non-steroidal anti-inflammatories (NSAID); Z79.899 Other long term (current) drug therapy
CPT/HCPCS: 29879; 29880; J2250; J1100; J0690; J2405; J3010; J2704; J2001

== ENCOUNTER 2023-10-19 11:48 | Emergency (ER) | payer MEDICARE ==
[2023-10-19] MEDS ORDERED: Acetaminophen-Codeine 300-30mg TAB PO STA (12:19)
[2023-10-19 12:36] VITALS: TEMP 98
[2023-10-19] MEDS ORDERED: KETOROLAC 15 MG/ML 1 ML VIAL IM STA (12:38)
--- NOTE | 2023-10-19 12:50 | ED ---
Fall HPI - General Chief Complaint: Fall Stated Complaint: Fall Time Seen by Provider: 10/19/23 12:16 Source: patient, RN notes reviewed, old records reviewed Mode of arrival: ambulatory Limitations: no limitations - History of Present Illness Initial Comments: This is a 73-year-old male to the emergency department today today. Patient presents today for evaluation regards to. Fall with back pain rib pain. Patient states he fell off about a three-step ladder, didn't his head without loss of consciousness no head and neck pain is complaining of side pain back pain. Patient has had urination without blood. No abdominal pain. No other complaints, patient is on not on blood thinners. 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 Fall Occurred: home Loss of Consciousness: none Prolonged Down Time?: no Symptoms Prior to Fall: none Location: head, neck Severity: moderate Severity scale (1-10): 4 Context: tripped/slipped Associated Symptoms: denies - Related Data Home Medications Medication Instructions Recorded Confirmed Sertraline [Zoloft] 150 mg PO QAM 11/22/14 04/03/23 buPROPion XL [Wellbutrin Xl] 150 mg PO QAM 11/22/14 04/03/23 Dicyclomine HCl 20 mg PO TID-W/MEALS 06/09/20 04/03/23 Pantoprazole [Protonix] 40 mg PO QAM 06/09/20 04/03/23 Aspirin [Adult Low Dose Aspirin EC] 81 mg PO HS 06/25/22 04/03/23 amLODIPine [Norvasc] 10 mg PO QAM 06/25/22 04/03/23 atenoloL [Tenormin] 25 mg PO HS 06/25/22 04/03/23 hydroCHLOROthiazide 12.5 mg PO QAM 06/25/22 04/03/23 lisinopriL [Zestril] 5 mg PO QAM 06/25/22 04/03/23 Previous Rx's Medication Instructions Recorded traMADol HCl [Ultram] 50 mg PO Q6H PRN #12 tab 04/03/23 Allergies Allergy/AdvReac Type Severity Reaction Status Date / Time No Known Allergies Allergy Verified 10/19/23 12:16 Review of Systems ROS Statement: Those systems with pertinent positive or pertinent negative responses have been documented in the HPI. ROS Other: All systems not noted in ROS Statement are negative. Past Medical History Past Medical History: Cancer, GERD/Reflux, Hearing Disorder / Deafness, Hypertension, Prostate Disorder, Sleep Apnea/CPAP/BIPAP Additional Past Medical History / Comment(s): SLEEP APNEA-C PAP,[place] jeremie ears, prostate CA-Dx 2017 History of Any Multi-Drug Resistant Organisms: None Reported Past Surgical History: Back Surgery, Cholecystectomy, Joint Replacement, Orthopedic Surgery Additional Past Surgical History / Comment(s): NECK AND BACK SURGERY,jeremie knee arthroscopies,trigger finger surgery,TURP, LEFT KNEE REPLACED, LEFT ROTATOR CUFF REPAIR Past Anesthesia/Blood Transfusion Reactions: No Reported Reaction Additional Past Anesthesia/Blood Transfusion Reaction / Comment(s): ISSUES WITH URINATING AFTER ANESTH. Past Psychological History: Depression Smoking Status: Never smoker Past Alcohol Use History: Occasional Past Drug Use History: None Reported - Past Family History Father Family Medical History: Cancer, Deep Vein Thrombosis (DVT) Additional Family Medical History / Comment(s): prostate General Exam Limitations: no limitations General appearance: alert, in no apparent distress Head exam: Present: atraumatic, normocephalic, normal inspection Eye exam: Present: normal appearance, PERRL, EOMI. Absent: scleral icterus, conjunctival injection, periorbital swelling ENT exam: Present: normal exam, mucous membranes moist Neck exam: Present: normal inspection. Absent: tenderness, meningismus, lymphadenopathy Respiratory exam: Present: normal lung sounds bilaterally. Absent: respiratory distress, wheezes, rales, rhonchi, stridor Cardiovascular Exam: Present: regular rate, normal rhythm, normal heart sounds. Absent: systolic murmur, diastolic murmur, rubs, gallop, clicks GI/Abdominal exam: Present: soft, normal bowel sounds. Absent: distended, tenderness, guarding, rebound, rigid Extremities exam: Present: normal inspection, full ROM, normal capillary refill. Absent: tenderness, pedal edema, joint swelling, calf tenderness Back exam: Present: normal inspection Neurological exam: Present: alert, oriented X3, CN II-XII intact Psychiatric exam: Present: normal affect, normal mood Skin exam: Present: warm, dry, intact, normal color. Absent: rash Course Vital Signs 10/19/23 10/19/23 12:14 13:32 Temperature 98 F 98 F Pulse Rate 67 53 L Respiratory 20 18 Rate Blood Pressure 140/78 123/68 O2 Sat by Pulse 99 98 Oximetry - Reevaluation(s) Reevaluation #1: 10/19/23 13:04 Medical record is reviewed Reevaluation #2: Patient symptoms are improved here in the emergency department Reevaluation #3: Patient informed results and questions are answered Reevaluation #4: 10/19/23 12:53 Was pt. sent in by a medical professional or institution (SHANDRA Gamboa, [employer], urgent care, hospital, or senior living...) When possible be specific @ -no Did you speak to anyone other than the patient for history (EMS, parent, family, police, friend...)? What history was obtained from this source @ -no Did you review nursing and triage notes (agree or disagree)? Why? @ -agree Are old charts reviewed (outside hosp., previous admission, EMS record, old EKG, old radiological studies, urgent care reports/EKG's, senior living records)? Report findings @ -yes Differential Diagnosis (chest pain, altered mental status, abdominal pain women, abdominal pain men, vaginal bleeding, weakness, fever, dyspnea, syncope, headache, dizziness, GI bleed, back pain, seizure, CVA, palpatations, mental health, musculoskeletal)? @ -prior EKG interpreted by me (3pts min.). @ -no X-rays interpreted by me (1pt min.). @ -yes negative for acute disease CT interpreted by me (1pt min.). @ -no U/S interpreted by me (1pt. min.). @ -no What testing was considered but not performed or refused? (CT, X-rays, U/S, labs)? Why? @ -none What meds were considered but not given or refused? Why? @ -none Did you discuss the management of the patient with other professionals (professionals i.e. SHANDRA Gamboa, [employer], lab, RT, psych nurse, social sciences chair, highway maintainer, teacher, gift officer, oil field caser)? Give summary @ -no Was smoking cessation discussed for >3mins.? @ -no Was critical care preformed (if so, how long)? @ -no Were there social determinants of health that impacted care today? How? (Homelessness, low income, unemployed, alcoholism, drug addiction, transportation, low edu. Level, literacy, decrease access to med. care, usp, rehab)? @ -none Was there de-escalation of care discussed even if they declined (Discuss DNR or withdrawal of care, Hospice)? DNR status @ -no What co-morbidities impacted this encounter? (DM, HTN, Smoking, COPD, CAD, Cancer, CVA, ARF, Chemo, Hep., AIDS, mental health diagnosis, sleep apnea, morbid obesity)? @ -none Was patient admitted / discharged? Hospital course, mention meds given and route, prescriptions, significant lab abnormalities, going to OR and other pertinent info. @ - 73 male to the emergency department today for evaluation today. Patient's presenting for back pain after fall. Now currently controlled and is able to ambulate with no neurological findings and can be discharged home Discharge Undiagnosed new problem with uncertain prognosis? @ -no Drug Therapy requiring intensive monitoring for toxicity (Heparin, Nitro, Insulin, Cardizem)? @ -no Were any procedures done? @ -no Diagnosis/symptom? @ -Fall with back pain and contusion Acute, or Chronic, or Acute on Chronic? @ -Acute Uncomplicated (without systemic symptoms) or Complicated (systemic symptoms)? @ -Complicated Side effects of treatment? @ -no Exacerbation, Progression, or Severe Exacerbation? @ -exacerbation Poses a threat to life or bodily function? How? (Chest pain, [place], MA, pneumonia, PE, COPD, DKA, ARF, appy, cholecystitis, CVA, Diverticulitis, Homicidal, Suicidal, threat to staff... and all critical care pts) @ -yes with significant back pain and fall Reevaluation #5: Differential Back Pain: Strain, zoster, cauda equina syndrome, epidural abscess, vertebral osteomyelitis, discitis, fracture, subluxation, disc herniation, DJD, spinal stenosis, dissection, AAA, pancreatitis, peptic ulcer disease, pyelonephritis, kidney stone, this is not meant to be an all-inclusive list. Medical Decision Making - Medical Decision Making 73 male to the emergency department today for evaluation today. Patient's presenting for back pain after fall. Now currently controlled and is able to ambulate with no neurological findings and can be discharged home - Radiology Data Radiology results: report reviewed (X-ray lumbar spine ribs are negative for traumatic injury), image reviewed Disposition Clinical Impression: Fall, Back pain Disposition: HOME SELF-CARE Condition: Good Is patient prescribed a controlled substance at d/c from ED?: No Referrals: Obed Dahl Jr, DO [Primary Care Provider] - 1-2 days Time of Disposition: 13:25
--- NOTE | 2023-10-19 13:05 | XR ---
EXAMINATION TYPE: XR ribs LT w pa chest xray DATE OF EXAM: 10/19/2023 1:00 PM CLINICAL INDICATION:Male, 73 years old with history of pain; COMPARISON: 10/19/2023. TECHNIQUE: XR ribs LT w pa chest xray; Frontal and oblique views of the ribs with frontal chest radio graph. FINDINGS: The ribs have a normal appearance. No evidence of fracture. Overall, the lungs are clear. The cardiac silhouette is normal in size. The remaining osseous structures are intact. IMPRESSION: No acute osseous pathology.
--- NOTE | 2023-10-19 13:07 | XR ---
EXAMINATION TYPE: XR lumbar spine 2 or 3V DATE OF EXAM: 10/19/2023 1:00 PM CLINICAL INDICATION:Male, 73 years old with history of pain; [facility] COMPARISON: None TECHNIQUE: XR lumbar spine 2 or 3V - Frontal, lateral and coned in L5-S1 lateral views of the spine. FINDINGS: No evidence of any acute osseous pathology. No evidence of loss of vertebral body height i s seen. There is normal alignment of the lumbar vertebral bodies. Mild scattered disc space narrowing . Multilevel marginal osteophyte formation throughout the visualized spine. There is facet joint arth ropathy throughout the spine. Scattered at least mild and moderate to possibly severe L5-S1 L4-L5 venkata ral foraminal stenosis. IMPRESSION: 1. No acute fracture. 2. Mild to moderate multilevel disc degeneration.
[2023-10-19] MEDS ORDERED: IBUPROFEN 600 MG STARTER PACK 4 TAB BTL PO STA (13:26)
[2023-10-19] MEDS ORDERED: ACET/COD 300 MG/30 MG STARTER PACK 6 TAB BTL PO STA (13:26)
[2023-10-19 13:49] VITALS: BP 123/68; PULSE 53; RESP 18
== END 2023-10-19 13:33 | disposition home or self-care (01) ==
LOC: EC 11:48
DX: S30.0XXA Contusion of lower back and pelvis, initial encounter (principal); I10 Essential (primary) hypertension; K21.9 Gastro-esophageal reflux disease without esophagitis; F32.A Depression, unspecified; Z79.82 Long term (current) use of aspirin; Z79.899 Other long term (current) drug therapy; W01.0XXA Fall on same level from slipping, tripping and stumbling without subsequent striking against object, initial encounter; Y92.009 Unspecified place in unspecified non-institutional (private) residence as the place of occurrence of the external cause
CPT/HCPCS: 71101; 72100; 99283; 96372; J1885

== ENCOUNTER → 2024-09-20 | Outpatient (CLI) | payer MEDICARE | END | disposition home or self-care (01) | LOC: LABWHC1 08:51 | PROVIDERS: ATTEND Urology | DX: Z00.00 Encounter for general adult medical examination without abnormal findings (principal) | CPT/HCPCS: 36415; 84153 ==